=== PATIENT | female | born 1990 | race Caucasian/White ===

== ENCOUNTER 2016-05-21 18:17 | Emergency (ER) | payer BC, OTHER | END 2016-05-21 19:52 | disposition home or self-care (01) | LOC: ER 18:17 | DX: M54.9 Dorsalgia, unspecified (principal); G89.29 Other chronic pain; E28.2 Polycystic ovarian syndrome; Z87.19 Personal history of other diseases of the digestive system; Z79.899 Other long term (current) drug therapy; Z79.3 Long term (current) use of hormonal contraceptives | CPT/HCPCS: 72128; 72131; 81025; 96372; 99283-25 ==